=== PATIENT | male | born 1960 | race African-American/Black ===

== ENCOUNTER → 2016-10-17 | Outpatient (CLI) | payer MEDICARE, MEDICAID ==
[2016-10-17 12:01] LABS: Basophils # (auto) 0 uL; Basophils % (auto) 0.5 % (0.0-2.0); Eosinophils # (auto) 0.1 uL; Eosinophils % (auto) 3.1 % (0.0-7.0); Hematocrit 42.2 % (41.0-53.0); Hemoglobin 14.3 g/dL (13.5-17.5); Lymphocytes # (auto) 1.4 uL; Lymphocytes % (auto) 34.2 % (10.0-50.0); Mean Corpuscular Hemoglobin 31.4 pg (28.0-32.0); Mean Corpuscular Hgb Conc. 33.8 g/dL (32.0-36.0); Mean Corpuscular Volume 92.7 fL (80.0-100.0); Mean Platelet Volume 8.5 fL (7.4-10.4); Monocytes # (auto) 0.4 uL; Monocytes % (auto) 8.9 % (0.0-12.0); Neutrophils # (auto) 2.2 uL; Neutrophils % (auto) 53.3 % (37.0-80.0); Platelet Count (auto) 227 10^3/uL (140-450); Red Cell Distribution Width 13.9 % (11.6-16.0); White Blood Cell 4.2 10^3/uL (4.4-10.8)
[2016-10-17 12:08] LABS: Urine Bilirubin Negative (Negative); Urine Blood Negative /uL (Negative); Urine Color Yellow (Yellow); Urine Glucose Normal (Normal); Urine Ketone Negative (Negative); Urine Nitrite Negative (Negative); Urine RBC <1 /hpf (0 - 3); Urine Urobilinogen Normal (Negative); Urine pH 5.5 (5.0-8.0)
[2016-10-17 12:29] LABS: Albumin 4.3 g/dL (3.4-5.0); BUN/Creatinine Ratio 10.3; Bilirubin, Total 0.4 mg/dL (0.2-1.0); Calcium 8.8 mg/dL (8.5-10.1); Total Protein 7.9 g/dL (6.4-8.2)
== END | disposition home or self-care (01) ==
LOC: LAB 11:36
PROVIDERS: ATTEND Internal Medicine
DX: I10 Essential (primary) hypertension (principal); M10.9 Gout, unspecified; F78 Other intellectual disabilities; M10.00 Idiopathic gout, unspecified site
CPT/HCPCS: 36415; 80053; 80061; 81001; 83036; 84153; 84443; 85025

== ENCOUNTER 2017-07-27 09:21 | Emergency (ER) | payer MEDICARE, MEDICAID ==
[~2017-07-27] VITALS: Ht 185.4 cm; Wt 83.9 kg
[2017-07-27 09:36] VITALS: BP 146/65
[2017-07-27] MEDS ORDERED: CLINDAMYCIN 900MG IV 50 ML IV ONE (10:15)
[2017-07-27] MEDS ORDERED: SODIUM CHLORIDE 0.9% 2,000 ML IV ONE (10:15)
[2017-07-27] MEDS ORDERED: cefTRIAXone 1GM/10ml IVPUSH 10 ML IV ONE (10:15)
[2017-07-27] MEDS ORDERED: KETOROLAC TROMETH 60MG/2ML VIAL IM ONE (10:30)
== END 2017-07-27 10:43 | disposition home or self-care (01) ==
LOC: ER 09:21
DX: M10.071 Idiopathic gout, right ankle and foot (principal); F17.210 Nicotine dependence, cigarettes, uncomplicated
CPT/HCPCS: 96372; 99283; J1885

== ENCOUNTER 2017-08-30 13:35 | Emergency (ER) | payer MEDICARE, MEDICAID ==
[~2017-08-30] VITALS: Ht 177.8 cm; Wt 79.4 kg
[2017-08-30 14:10] VITALS: BP 160/98
== END 2017-08-30 15:28 | disposition home or self-care (01) ==
LOC: ER 13:35
DX: M10.071 Idiopathic gout, right ankle and foot (principal); F17.210 Nicotine dependence, cigarettes, uncomplicated

== ENCOUNTER → 2018-02-26 | Outpatient (CLI) | payer MEDICARE, MEDICAID ==
[2018-02-26 15:29] LABS: Basophils # (auto) 0 uL; Basophils % (auto) 1.2 % (0.0-2.0); Eosinophils # (auto) 0.1 uL; Eosinophils % (auto) 3.7 % (0.0-7.0); Hematocrit 38.8 % (41.0-53.0); Hemoglobin 13.1 g/dL (13.5-17.5); Lymphocytes # (auto) 1.3 uL; Lymphocytes % (auto) 33.5 % (10.0-50.0); Mean Corpuscular Hemoglobin 32.4 pg (28.0-32.0); Mean Corpuscular Hgb Conc. 33.8 g/dL (32.0-36.0); Monocytes # (auto) 0.4 uL; Monocytes % (auto) 10.4 % (0.0-12.0); Neutrophils # (auto) 1.9 uL; Neutrophils % (auto) 51.2 % (37.0-80.0); Nucleated Red Blood Cells % 0.1 %; Platelet Count (auto) 176 10^3/uL (140-450); Red Blood Cells 4.05 10^6/uL (4.5-5.90); Red Cell Distribution Width 13.9 % (11.8-14.3); White Blood Cell 3.8 10^3/uL (4.4-10.8)
[2018-02-26 16:06] LABS: BUN/Creatinine Ratio 15.5; Bilirubin, Total 0.3 mg/dL (0.2-1.0); Calcium 8.5 mg/dL (8.5-10.1); Total Protein 7.4 g/dL (6.4-8.2)
== END | disposition home or self-care (01) ==
LOC: LAB 15:09
PROVIDERS: ATTEND Physician Assistant
DX: I10 Essential (primary) hypertension (principal); F78 Other intellectual disabilities; M19.90 Unspecified osteoarthritis, unspecified site; M10.9 Gout, unspecified
CPT/HCPCS: 36415; 80053; 80061; 85025

== ENCOUNTER → 2018-09-20 | Outpatient (CLI) | payer MEDICARE, MEDICAID, OTHER ==
[2018-09-20 08:49] LABS: Basophils # (auto) 0.1 uL; Basophils % (auto) 1.5 % (0.0-2.0); Eosinophils # (auto) 0.1 uL; Eosinophils % (auto) 2.5 % (0.0-7.0); Hematocrit 41.2 % (41.0-53.0); Hemoglobin 13.8 g/dL (13.5-17.5); Lymphocytes # (auto) 1.3 uL; Lymphocytes % (auto) 36.3 % (10.0-50.0); Mean Corpuscular Hemoglobin 31.7 pg (28.0-32.0); Mean Corpuscular Hgb Conc. 33.5 g/dL (32.0-36.0); Mean Corpuscular Volume 94.5 fL (80.0-100.0); Monocytes # (auto) 0.4 uL; Monocytes % (auto) 11.4 % (0.0-12.0); Neutrophils # (auto) 1.7 uL; Neutrophils % (auto) 48.3 % (37.0-80.0); Platelet Count (auto) 179 10^3/uL (140-450); Red Blood Cells 4.36 10^6/uL (4.5-5.90); Red Cell Distribution Width 13.6 % (11.8-14.3); White Blood Cell 3.5 10^3/uL (4.4-10.8)
[2018-09-20 09:10] LABS: Albumin 3.9 g/dL (3.4-5.0); Calcium 8.8 mg/dL (8.5-10.1); Potassium 3.7 mmol/L (3.5-5.1)
[2018-09-20 09:16] LABS: Bilirubin, Total 0.5 mg/dL (0.2-1.0); Total Protein 7.4 g/dL (6.4-8.2)
== END | disposition home or self-care (01) ==
LOC: LAB 08:17
PROVIDERS: ATTEND Physician Assistant
DX: I10 Essential (primary) hypertension (principal); M19.90 Unspecified osteoarthritis, unspecified site; M10.10 Lead-induced gout, unspecified site; F10.10 Alcohol abuse, uncomplicated
CPT/HCPCS: 36415; 80053; 80061; 85025

== ENCOUNTER 2018-09-26 11:35 | Emergency (ER) | payer MEDICARE, MEDICAID ==
[~2018-09-26] VITALS: Ht 175.3 cm; Wt 76.7 kg
[2018-09-26 13:13] VITALS: BP 159/109
[2018-09-26] MEDS ORDERED: KETOROLAC TROMETH 60MG/2ML VIAL IM ONE (14:00)
[2018-09-26] MEDS ORDERED: methylPREDNISolone SOD SUCC 125 MG/2 ML VL IM ONE (14:00)
== END 2018-09-26 14:34 | disposition home or self-care (01) ==
LOC: ER 11:35
DX: M10.9 Gout, unspecified (principal); F17.210 Nicotine dependence, cigarettes, uncomplicated
CPT/HCPCS: 96372; 99283; J1885; J2930

== ENCOUNTER 2018-11-07 14:48 | Emergency (ER) | payer MEDICARE, MEDICAID ==
[~2018-11-07] VITALS: Ht 182.9 cm; Wt 80.7 kg
[2018-11-07 15:34] VITALS: BP 115/57
== END 2018-11-07 16:32 | disposition home or self-care (01) ==
LOC: ER 14:48
DX: B35.4 Tinea corporis (principal); M10.9 Gout, unspecified; I10 Essential (primary) hypertension; F17.210 Nicotine dependence, cigarettes, uncomplicated

== ENCOUNTER 2019-02-06 09:32 | Emergency (ER) | payer MEDICARE, MEDICAID ==
[2019-02-06 09:37] VITALS: BP 139/90
[2019-02-06] MEDS ORDERED: KETOROLAC TROMETH 60MG/2ML VIAL IM ONE (10:00)
== END 2019-02-06 10:18 | disposition home or self-care (01) ==
LOC: ER 09:32
DX: M10.9 Gout, unspecified (principal); I10 Essential (primary) hypertension; F17.210 Nicotine dependence, cigarettes, uncomplicated
CPT/HCPCS: 96372; 99283; J1885

== ENCOUNTER 2019-03-08 15:48 | Emergency (ER) | payer MEDICARE, MEDICAID ==
[~2019-03-08] VITALS: Ht 182.9 cm; Wt 77.1 kg
[2019-03-08 16:52] VITALS: BP 156/100
[2019-03-08] MEDS ORDERED: KETOROLAC TROMETH 60MG/2ML VIAL IM ONE (17:00)
== END 2019-03-08 17:41 | disposition home or self-care (01) ==
LOC: ER 15:51
DX: M10.9 Gout, unspecified (principal); I10 Essential (primary) hypertension; F17.210 Nicotine dependence, cigarettes, uncomplicated
CPT/HCPCS: 96372; 99283; J1885

== ENCOUNTER → 2020-01-23 | Outpatient (CLI) | payer MEDICARE, MEDICAID ==
[2020-01-23 08:48] LABS: Basophils # (auto) 0.1 10 ^3/uL (0-0.2); Basophils % (auto) 1.2 % (0.0-2.0); Eosinophils # (auto) 0.2 10 ^3/uL (0-0.8); Eosinophils % (auto) 5.5 % (0.0-7.0); Hematocrit 39.5 % (41.0-53.0); Hemoglobin 13.1 g/dL (13.5-17.5); Lymphocytes # (auto) 1.3 10 ^3/uL (0.4-5.4); Lymphocytes % (auto) 32.6 % (10.0-50.0); Mean Corpuscular Hemoglobin 31.5 pg (28.0-32.0); Mean Corpuscular Hgb Conc. 33.1 g/dL (32.0-36.0); Mean Corpuscular Volume 95.1 fL (80.0-100.0); Monocytes # (auto) 0.4 10 ^3/uL (0-1.3); Neutrophils # (auto) 2.1 10 ^3/uL (1.6-8.6); Neutrophils % (auto) 51.7 % (37.0-80.0); Nucleated Red Blood Cells % 0.1 %; Platelet Count (auto) 218 10^3/uL (140-450); Red Blood Cells 4.15 10^6/uL (4.5-5.90); Red Cell Distribution Width 14.3 % (11.8-14.3); White Blood Cell 4.1 10^3/uL (4.4-10.8)
[2020-01-23 09:28] LABS: Potassium 3.9 mmol/L (3.5-5.1)
[2020-01-23 09:39] LABS: BUN/Creatinine Ratio 16.2; Bilirubin, Total 0.3 mg/dL (0.2-1.0); Calcium 9.3 mg/dL (8.5-10.1); Total Protein 7.6 g/dL (6.4-8.2)
== END | disposition home or self-care (01) ==
LOC: LAB 08:24
PROVIDERS: ATTEND Physician Assistant
DX: I10 Essential (primary) hypertension (principal); N39.498 Other specified urinary incontinence; F10.10 Alcohol abuse, uncomplicated; R35.1 Nocturia
CPT/HCPCS: 36415; 80053; 80061; 84153; 85025

== ENCOUNTER 2020-07-22 11:21 | Emergency (ER) | payer MEDICARE, MEDICAID ==
[~2020-07-22] VITALS: Ht 182.9 cm; Wt 72.6 kg
[2020-07-22 12:11] LABS: Urine Bacteria NONE SEEN /hpf (None Seen); Urine Blood Negative /uL (Negative); Urine Specific Gravity 1.012 (1.001-1.035); Urine WBC <1 /hpf (0 - 3)
[2020-07-22 12:26] VITALS: BP 140/91
== END 2020-07-22 12:52 | disposition home or self-care (01) ==
LOC: ER 11:21 → MERGE 11:21 → ER 12:52
DX: R32 Unspecified urinary incontinence (principal); I10 Essential (primary) hypertension
CPT/HCPCS: 81001

== ENCOUNTER 2021-02-10 13:48 | Emergency (ER) | payer MEDICARE, MEDICAID ==
[~2021-02-10] VITALS: Ht 180.3 cm; Wt 83.9 kg
[2021-02-10 15:54] VITALS: BP 119/59
[2021-02-10] MEDS ORDERED: LIDOCAINE 1% HCL (LOCAL ANESTH.) INJ 20ML MDV ONE (17:09)
== END 2021-02-10 16:39 | disposition home or self-care (01) ==
LOC: ER 13:48
DX: M10.9 Gout, unspecified (principal); I10 Essential (primary) hypertension; F17.210 Nicotine dependence, cigarettes, uncomplicated
CPT/HCPCS: 99283; J2001

== ENCOUNTER 2021-04-23 14:50 | Emergency (ER) | payer MEDICARE, MEDICAID ==
[~2021-04-23] VITALS: Ht 185.4 cm; Wt 88.5 kg
[2021-04-23 17:34] VITALS: BP 134/80
== END 2021-04-23 17:32 | disposition home or self-care (01) ==
LOC: ER 14:50
DX: M10.071 Idiopathic gout, right ankle and foot (principal); I10 Essential (primary) hypertension; F17.210 Nicotine dependence, cigarettes, uncomplicated
CPT/HCPCS: 36415; 73630; 84550